=== PATIENT | male | born 1945 | race Caucasian/White ===

== ENCOUNTER 2017-12-17 05:42 | Observation (INO) | payer OTHER ==
[2017-12-17] MEDS ORDERED: morphINE SR 15 MG TAB PO ONE (05:49)
[2017-12-17] MEDS ORDERED: GABAPENTIN 300 MG CAP PO ONE (05:49)
[2017-12-17] MEDS ORDERED: ACETAMINOPHEN 500 MG TAB PO ONE (05:49)
[2017-12-17] MEDS ORDERED: ceFAZolin 2 GM/DEXTROSE 100 ML IV ONE (05:49)
[2017-12-17] MEDS ORDERED: LIDOCAINE 1% 2 ML INJ ID PRN (05:50)
[2017-12-17] MEDS ORDERED: LR 1,000 ML IV ONE (05:50)
[2017-12-17] MEDS ORDERED: THROMBIN (BOVINE) 20,000 UNIT VIAL TP ONE (06:43)
[2017-12-17] MEDS ORDERED: CHLORHEXIDINE GLUC HIBICLENS 118 ML BTL TP ONE (06:43)
[2017-12-17] MEDS ORDERED: AVITENE POWDER 1 GM JAR TP ONE (06:44)
[2017-12-17] MEDS ORDERED: BACITRACIN 50,000 UNITS/10 ML SYR IRR ONE ×2 (06:44→07:11)
[2017-12-17] MEDS ORDERED: BUPIVACAINE 0.25% 30 ML SDV ONE (06:44)
[2017-12-17] MEDS ORDERED: EPINEPHrine 1 MG/ML INJ ONE (06:44)
--- NOTE | 2017-12-17 07:02 | PDHPUP ---
History & Physical Update H&P update statement: This history and physical update is based on an assessment of the patient which was completed after admission or registration (within 24 hours), but prior to the surgery/procedure. H&P update: H&P reviewed & patient examined, no change in patient's condition since H&P completed (Patient seen this morning. Consents signed. Site marked. All questions answered.)
[2017-12-17] MEDS ORDERED: MIDAZOLAM 2 MG/2 ML VIAL IVP ONE (07:07)
--- NOTE | 2017-12-17 07:11 | PDANEPAE ---
ANE History of Present Illness spinal stenosis ANE Past Medical History - Cardiovascular History Hx Hypertension: Yes Hx Coronary Artery / Peripheral Vascular Disease: Yes Cardiovascular History Comment: STENT X1 2001. HYPERCHOLESTEROL. SVT - Pulmonary History Hx COPD: Yes Hx Asthma/Reactive Airway Disease: No Hx Recent Upper Respiratory Infection: No Hx Oxygen in Use at Home: No Hx Sleep Apnea: No Sleep Apnea Screening Result - Last Documented: Negative Pulmonary History Comment: PAST HX ASTHMA. NO LONGER HAS CPAP OR SXS OF SLEEP APNEA. NO NOTICEABLE TACHYCARDIA OR PALPITATIONS - Neurologic History Hx Cerebrovascular Accident: No Hx Seizures: No Hx Dementia: No - Endocrine History Hx Diabetes: Yes Endocrine History Comment: A1C STAYS 6.0 RANGE - Renal History Hx Renal Disorders: No Renal History Comment: PAST HX MILD KIDNEY DISEASE - Liver History Hx Hepatic Disorders: No Hepatic History Comment: PANCREATITIS IN PAST - STOPPED ALCOHOL CONSUMPTION - Neurological & Psychiatric Hx Hx Neurological and Psychiatric Disorders: No - Cancer History Hx Cancer: No - Congenital Disorder History Hx Congenital Disorders: No - GI History Hx Gastrointestinal Disorders: Yes Gastrointestinal History Comment: HX - BARRETS ESOPHAGUS. SOME OCCAS REFLUX. HIATAL HERNIA - Other Health History Other Health History: NEG - Chronic Pain History Chronic Pain: Yes (BACK PAIN) - Surgical History Prior Surgeries: CERVICAL FUSION. HUSAM TKA ANE Review of Systems Review of Systems: - Exercise capacity METS (RN): 5 METS ANE Patient History - Allergies Allergies/Adverse Reactions: Penicillins Allergy (Verified 12/14/17 12:44) Other-Enter Comments - Home Medications Home Medications: Acetaminophen [Tylenol ES 500 mg (*)] 1,000 mg PO HS PRN 12/14/17 [Last Taken 21:30] Albuterol [Proventil Inhaler HFA (*)] 1 - 2 puffs IH Q4H PRN 12/14/17 [Last Taken 11/15/17] Allopurinol [Allopurinol 100 MG (*)] 150 mg PO HS 12/14/17 [Last Taken 12/16/17 21:30] Aspirin [Aspirin 81mg (*)] 81 mg PO DAILY 12/14/17 [Last Taken 12/10/17] Atorvastatin Calcium [Lipitor 40 mg (*)] 40 mg PO HS 12/14/17 [Last Taken 21:30] Bisoprolol Fumarate [Zebeta (*)] 5 mg PO HS 12/14/17 [Last Taken 12/16/17 21:30] Fluticasone/Salmeter 500/50Mcg [Advair 500/50 (*)] 1 puffs IH BID 12/14/17 [ Last Taken 12/17/17 05:00] Multivitamins [Multivitamin (*)] 1 each PO DAILY 12/14/17 [Last Taken 12/10/17] [place]-3 Fatty Acids [Fish Oil 1000 mg (*)] 1,000 mg PO DAILY 12/14/17 [Last Taken 12/10/17] Omeprazole 20 mg PO HS 12/14/17 [Last Taken 12/16/17 21:30] Spironolactone [Aldactone 25 MG (*)] 25 mg PO DAILY 12/14/17 [Last Taken ] Valsartan [Diovan (*)] 160 mg PO HS 12/14/17 [Last Taken 12/16/17 21:30] metFORMIN HCL [Glucophage 500 mg (*)] 1,000 mg PO DAILY 12/14/17 [Last Taken ] - NPO status NPO Since - Liquids (Date): 12/16/17 NPO Since - Liquids (Time): 22:00 NPO Since - Solids (Date): 12/16/17 NPO Since - Solids (Time): 14:00 - Smoking Hx Smoking Status: Heavy smoker - Family Anes Hx Family Hx Anesthesia Complications: NEG ANE Labs/Vital Signs - Vital Signs Blood Pressure: 115/75 Heart Rate: 76 Respiratory Rate: 18 O2 Sat (%): 94 Height: 180.34 cm Weight: 102.058 kg ANE Physical Exam - Airway Neck exam: decreased ROM Mallampati Score: Class 2 Mouth exam: normal dental/mouth exam - Pulmonary Pulmonary: no respiratory distress - Cardiovascular Cardiovascular: regular rate and rhythym - ASA Status ASA Status: III ANE Anesthesia Plan Anesthesia Plan: general endotracheal anesthesia
[2017-12-17] MEDS ORDERED: MIDAZOLAM 2 MG/2 ML VIAL ONE (07:12)
[2017-12-17] MEDS ORDERED: fentaNYL 100 MCG/2 ML INJ ONE ×2 (07:14)
[2017-12-17] MEDS ORDERED: HYDROmorphONE/DILAUDID 2 MG/ML INJ ONE (07:14)
[2017-12-17] MEDS ORDERED: PROPOFOL 200 MG/20 ML VIAL ONE (07:15)
[2017-12-17] MEDS ORDERED: ONDANSETRON 4 MG/2 ML VIAL ONE (07:31)
[2017-12-17] MEDS ORDERED: DEXAMETHASONE 4 MG/ML VIAL ONE (07:31)
[2017-12-17] MEDS ORDERED: ROCURONIUM 50 MG/5 ML VIAL ONE (07:31)
[2017-12-17] MEDS ORDERED: PHENYLEPHRINE HCL 100 MCG/ML SYR ONE (07:32)
[2017-12-17] MEDS ORDERED: ePHEDrine SULFATE 25 MG/5 ML SYR ONE (07:32)
[2017-12-17] MEDS ORDERED: PROPOFOL/EMULSION 500 MG/50 ML BOTTLE IV ONE (07:48)
[2017-12-17] MEDS ORDERED: ONDANSETRON 4 MG/2 ML VIAL IVP PRN ×2 (08:43→09:40)
[2017-12-17] MEDS ORDERED: PROMETHAZINE HCL 25 MG/ML INJ IVP PRN (08:43)
[2017-12-17] MEDS ORDERED: fentaNYL 100 MCG/2 ML INJ IVP PRN (08:43)
[2017-12-17] MEDS ORDERED: NALOXONE HCL 0.4 MG/ML INJ IVP PRN (08:43)
[2017-12-17] MEDS ORDERED: HYDROCODONE/APAP 5/325 TAB PO PRN (08:43)
[2017-12-17] MEDS ORDERED: HYDROmorphONE/DILAUDID 1 MG/ML INJ IVP PRN (08:43)
[2017-12-17] MEDS ORDERED: ALBUTEROL 60 PUFFS/8 GM MDI IH PRN (09:38)
[2017-12-17] MEDS ORDERED: LACTULOSE 20 GM/30 ML UDCUP PO PRN (09:40)
[2017-12-17] MEDS ORDERED: ONDANSETRON DISINTEGRATING 4 MG TAB PO PRN (09:40)
[2017-12-17] MEDS ORDERED: MAGNESIUM HYDROXIDE 30 ML UDCUP PO PRN (09:40)
[2017-12-17] MEDS ORDERED: BISACODYL 10 MG SUPP PR PRN (09:40)
[2017-12-17] MEDS ORDERED: diphenhydrAMINE 25 MG CAP PO PRN (09:40)
[2017-12-17] MEDS ORDERED: POLYETHYLENE GLYCOL 3350 17 GM PKT PO PRN (09:40)
--- NOTE | 2017-12-17 09:41 | POSTANESTH ---
Post Anesthetic Evaluation Cardiovascular Status: Normal, Stable Respiratory Status: Normal, Stable Level of Consciousness/Mental Status: Can Participate in Eval Pain Control: Adequate, Prn Tx Ordered Nausea/Vomiting Control: Adequate, Prn Tx Ordered Complications Possibly Related to Anesthesia: None Noted
--- NOTE | 2017-12-17 09:51 | POSTOPPROG ---
Post Op Note Date of Operation: 12/17/17 Surgeon: Gabriella Donald Break Out Man: JEF Donald Anesthesia: GET(General Endotracheal) Pre-op Diagnosis: lumbar stenosis Post-op Diagnosis: lumbar stenosis Indication: lumbar stenosis Procedure: L2-L5 laminectomy Inf/Abcess present in the surg proc area at time of surgery?: No EBL: Minimal Drains: Josué MCPHERSON Addendum - Addendum .: S: low back pain, denies any new leg pain, numbness, tingling or weakness O: NAD A&Ox3 MAEx4 5/5 and equal in BUE and BLE. VARGAS serosanguineous A/p 72y/o male s/p L2-L5 laminectomy -advance diet as tolerated -PT/OT -JPx1 -Optimize pain management -DVT prophx:TEDs, SCDs, lovenox POD1
[2017-12-17] MEDS: oxyCODONE IR 5 MG TAB PO PRN ×2 (11:46→21:28)
[2017-12-17] MEDS: METHOCARBAMOL 750 MG TAB PO PRN ×2 (11:46→21:28)
[2017-12-17] MEDS: ACETAMINOPHEN 500 MG TAB PO SCH ×2 (14:22→21:39)
[2017-12-17] MEDS: ceFAZolin 2 GM/DEXTROSE 100 ML IV SCH ×2 (14:47→23:22)
--- NOTE | 2017-12-17 19:16 | GOP ---
[f rep st] OPERATIVE REPORT DATE OF OPERATION: 12/17/2017 SURGEON: José Miguel Meeks MD BOAT RIGGER: Gabriella Donald, JEF. ANESTHESIA: General. PREOPERATIVE DIAGNOSIS: 1. Severe spinal stenosis with spondylosis L2 through L5. 2. Lower extremity radiculopathy, claudication and weakness. 3. Treatment refractory to nonoperative intervention. POSTOPERATIVE DIAGNOSIS: 1. Severe spinal stenosis with spondylosis L2 through L5. 2. Lower extremity radiculopathy, claudication and weakness. 3. Treatment refractory to nonoperative intervention. PROCEDURE PERFORMED: 1. Decompressive laminectomy with bilateral medial facetectomies and foraminotomies, L2-L3, L3-L4, and L4-L5. 2. Use of intraoperative fluoroscopy, less than 1 hour physician time. 3. Use of neuromonitoring. FINDINGS: per imaging SPECIMENS: None. ESTIMATED BLOOD LOSS: 150 mL. INDICATIONS: The patient is a 72-year-old gentleman who presented to my office with worsening low back pain with claudication. He had evidence of severe spinal stenosis L3-L4 and L4-L5 with moderate central stenosis L2-L3. After discussion of risks, benefits, and alternatives and given his utilization nicotine we decided to proceed forth with surgery as described above. DESCRIPTION OF PROCEDURE: Patient was brought to the operating theater and underwent general endotracheal anesthesia without complications. He had Venodynes, IDALMIS hose, and appropriate lines placed by Anesthesia. He was flipped prone onto a Charles frame and all bony processes inspected and padded. The lower lumbar region was prepped and draped in the usual sterile surgical fashion. A time-out was completed per protocol. The patient received antibiotics within 1 hour of incision. Using lateral fluoroscopy and a spinal needle, we picked our entry point to the L2 through L5 levels. This was marked in the midline and the incision infiltrated with Marcaine with epinephrine. The incision was taken down with the scalpel blade and using monopolar, taken down the midline to the lumbodorsal fascia. A subperiosteal dissection was carried out to the medial facet joints of L2-L3, L3-L4, and L4-L5. Deep retractors were placed to maintain our exposure. We confirmed our level using lateral fluoroscopy. Using a combination of the bur tip on the drill bit, Kerrison punches and Leksell rongeur, we completed decompressive laminectomy with bilateral medial facetectomies and bilateral foraminotomies L2-L3, L3-L4 and L4-L5. We continued until we felt that everything was well decompressed on manual palpation. We obtained hemostasis with bipolar and the wound was irrigated copiously with bacitracin irrigation. We then closed the wound in multiple layers including Vicryl sutures for the deep layers and Dermabond for the skin. The patient's wounds were dressed sterilely. He was flipped supine onto the transfer cart, where he was awakened, extubated, and taken to the recovery room in stable condition. There were no complications and no changes on neuromonitoring throughout the procedure. COMPLICATIONS: None. /[id number]/MODL MTDD
[2017-12-17] MEDS ORDERED: ATORVASTATIN CALCIUM 40 MG TAB PO SCH (21:00)
[2017-12-17] MEDS ORDERED: BISOPROLOL FUMARATE 5 MG TAB PO SCH (21:00)
[2017-12-17] MEDS ORDERED: VALSARTAN 160 MG TAB PO SCH (21:00)
[2017-12-17] MEDS ORDERED: ALLOPURINOL 100 MG TAB PO SCH (21:00)
[2017-12-17] MEDS ORDERED: PANTOPRAZOLE SODIUM 40 MG TAB PO SCH (21:00)
[2017-12-17] MEDS: FAMOTIDINE 20 MG TAB PO SCH (21:32)
[2017-12-17] MEDS: FLUTICASONE/SALMETER 500/50MCG DISKUS IH SCH (21:33)
[2017-12-17] MEDS: SENNOSIDES/DOCUSATE SODIUM TAB PO SCH (21:34)
[2017-12-18] MEDS: METHOCARBAMOL 750 MG TAB PO PRN (05:27)
[2017-12-18] MEDS: oxyCODONE IR 5 MG TAB PO PRN ×2 (05:27→09:59)
[2017-12-18 08:16] VITALS: BP 146/92
[2017-12-18] MEDS: FAMOTIDINE 20 MG TAB PO SCH (08:46)
[2017-12-18] MEDS: SENNOSIDES/DOCUSATE SODIUM TAB PO SCH (08:46)
[2017-12-18] MEDS: FLUTICASONE/SALMETER 500/50MCG DISKUS IH SCH (08:46)
[2017-12-18] MEDS: ACETAMINOPHEN 500 MG TAB PO SCH (08:47)
[2017-12-18] MEDS ORDERED: MULTIVITAMINS 1 EACH TAB PO SCH (09:00)
[2017-12-18] MEDS ORDERED: metFORMIN HCL 500 MG TAB PO SCH (09:00)
[2017-12-18] MEDS ORDERED: ENOXAPARIN 40 MG/0.4 ML SYR SC SCH (09:00)
[2017-12-18] MEDS ORDERED: SPIRONOLACTONE 25 MG TAB PO SCH (09:00)
--- NOTE | 2017-12-18 09:10 | NEUSURGPN ---
Date of Surgery: 12/17/17 Post Op Day: 1 Assessment/Plan: Assessment: 72y/o male s/p L2-L5 laminectomy POD#1 Plan: -PT/OT -JPx1 -Ok to discharge home this morning -Discussed patient with Dr Meeks Please call neurosurgery with any questions/concerns Subjective: Feeling good, leg pain improved Objective: AxO x3 PERRLA 5/5 BLE Sensation intact to light touch BLE Incision/dressing CDI VARGAS patent Neuro Check Frequency: per routine Urinary Catheter in Place: No - Physician Discussed Patient with : [facility] Physical Exam - Vitals, I&O, Labs I and O 12/17/17 12/18/17 12/19/17 05:59 05:59 05:59 Intake Total 2450 Output Total 1715 450 Balance 735 -450 Weight 102.058 kg Intake: Oral (ml) 1050 IV Intake (ml) 1300 IV Infused (ml) 100 ceFAZolin 2 GM/DEXTROSE 100 100 ml @ 200 mls/hr IV Q8H CHARITY Rx#:[id number] Output: Urine (ml) 1375 450 Urinal 1375 450 Estimated Blood Loss (ml) 100 VARGAS Drain Output (ml) 240 Right Back Josué Glynn 240 Other: Number of Voids Urinal 1 1 Microbiology 12/17/17 08:38 Gram Stain - Final Back - Eswab Vital Signs Temp Pulse Resp BP Pulse Ox 36.9 C 81 18 146/92 H 96 12/18/17 08:00 12/18/17 08:00 12/18/17 08:00 12/18/17 08:00 12/18/17 08:00 ICD10 Worksheet Patient Problems: Problems Problem Status Onset Lumbar stenosis Acute - ICD10 Problem Qualifiers (1) Lumbar stenosis
--- NOTE | 2017-12-18 14:10 | ASMTCMCOM ---
CM Note CM Note Notes: PT/OT rec home. Pt medically stable for d/c, no CM d/c needs identified. Date Signed: 12/18/2017 02:10 PM Electronically Signed By:WALESKA Hassan
--- NOTE | 2017-12-18 14:11 | ASMTLACE ---
LACE Length of stay for Answers: 1 day current admission Acuity / Level of Answers: Yes Care: Did the patient have an inpatient admission? Comorbidities - select Answers: Any tumor (including all that apply lymphoma or leukemia) Diabetes (uncontrolled or controlled) Other Notes: HTN # of Emergency department Answers: 1-2 visits in the last 6 months Score: 9 Date Signed: 12/18/2017 02:10 PM Electronically Signed By:WALESKA Hassan
--- NOTE | 2018-01-12 15:00 | GDS ---
[f rep st] DISCHARGE SUMMARY ADMISSION DIAGNOSES: Severe spinal stenosis and spondylosis L2-L5, with lower extremity radiculopath y, claudication, and weakness. DISCHARGE DIAGNOSES: Severe spinal stenosis and spondylosis L2-L5, with lower extremity radiculopath y, claudication, and weakness. PROCEDURES: On 12/17/2017, decompressive laminectomy with bilateral medial facetectomies and foramin otomies from L2-L5. HOSPITAL COURSE/HISTORY/MAJOR MEDICAL FINDINGS: The patient is a 72-year-old gentleman who presented to Dr. Meeks's outpatient clinic with worsening low back pain and claudication. He underwent an MR I, which demonstrated severe spinal stenosis at L3-4, L4-5 with moderate stenosis at L2-3. He attemp hanh and failed conservative treatment. Based on this, the risks, benefits, and alternatives to proce eding with the above-named procedure were thoroughly discussed with the patient. He was taken to the operating room on 12/17/2017. He was extubated in the operating room, transferred the PACU. Once a wake and alert in the PACU, he was transferred to the floor. While on the floor, he worked with Phys ical and Occupational therapy. His diet was advanced. His pain management was optimized. His VARGAS dr charlton was removed postoperatively without complication. The patient was deemed fit for discharge to [facility] on 12/18/2017. DISCHARGE INSTRUCTIONS: 1. Patient is instructed not to drive while taking narcotic pain medication. 2. The patient is to avoid all bending, twisting, anything, or lifting anything greater than 5-10 po unds for the next 6 weeks. 3. If the patient develops any nausea, vomiting, pain that is not relieved by his pain medication, o r fever greater than 100.5, he is encouraged to give the [facility] office a call. 4. If the patient develops any life-threatening emergent conditions, such as chest pain, signs or sy mptoms of stroke, or gross motor loss in his bilateral upper or bilateral lower extremities, he is en couraged to go to his local emergency room. FOLLOWUP CARE: 1. Patient should follow up with Dr. Meeks or one of his PAs in approximately 2-3 weeks. If he has any questions or concerns prior to that time, he is encouraged to give our office a call. 2. The patient is to follow up with his primary care provider in approximately 2-3 weeks. If he has any questions or concerns prior to that time, he should also give their office a call. Copy requested to: Braeden Mota /[id number]/MODL
== END 2017-12-18 13:06 | disposition home or self-care (01) ==
LOC: F3N 05:42
PROVIDERS: ADMIT Neurological Surgery; ATTEND Neurological Surgery
PROC: 00NY0ZZ Release Lumbar Spinal Cord, Open Approach (ICD-10-PCS; principal; 2017-12-17 07:15)
PROC: 4A1004G Monitoring of Central Nervous Electrical Activity, Intraoperative, Open Approach (ICD-10-PCS; principal; 2017-12-17 07:15)
DX: M48.07 Spinal stenosis, lumbosacral region (principal); M47.26 Other spondylosis with radiculopathy, lumbar region
CPT/HCPCS: 63047; 76001; 97116; 97161; 97165; 97535; G8978; G8979; G8980; G8987; G8988; G8989; J0171; J0690; J1100; J1650; J2250; J2370; J2405; J2704; J3010; J1170